=== PATIENT | female | born 1995 | race Caucasian/White ===

== ENCOUNTER 2021-07-30 19:34 | Emergency (ER) | payer OTHER, SELFPAY ==
[2021-07-30 19:36] VITALS: BP 146/85; PULSE 114; RESP 18; TEMP 37.9; O2SAT 96
--- NOTE | 2021-07-30 19:45 | W.ED.DIZZY ---
HPI - Dizziness General: Chief Complaint: Dizziness Stated Complaint: ever, headache Time Seen by Provider: 07/30/21 19:43 History of Present Illness: HPI Narrative: 25-year-old female comes in today with complaints of sore throat, cough, headache, nasal congestion. Patient appears mildly unwell but nontoxic. Patient denies any chronic medical problems. Patient does not feel that she is . Patient believes all of her immunizations are up-to-date. Patient has been using [id number] Tylenol for discomfort. Associated symptoms: Reports chills and nasal congestion; Denies chest pain, nausea or vomiting Review of Systems General: Reports: 10 or more systems reviewed and unremarkable except in HPI and below Const: Reports: fever(s), chills and body aches ENMT: Reports: throat pain and nasal congestion Card: Denies: chest pain Resp: Reports: non-productive cough GI: Denies: nausea, vomiting or diarrhea Musc: Denies: neck pain Skin/Breast: Denies: rash [facility], [facility] Female Reproductive History: Date of last menstrual period: 07/03/21 Physical Exam Const: COMMON NORMALS: alert HENMT: NOSE: Nasal discharge present MOUTH: Normal oral and palatal mucosa present THROAT: posterior oropharynx abnormal cobblestoning and erythema Neck/C-Spine: COMMON NORMALS: full ROM and no meningeal signs Resp: COMMON NORMALS: normal respiratory effort and clear to auscultation bilaterally AUSCULTATION: clear to auscultation bilaterally Cardio: COMMON NORMALS: regular rate RATE: regular rate GI: COMMON NORMALS: Soft to palpation PALPATION: Yes Soft to palpation Extremity: COMMON NORMALS: normal to inspection Neuro: SENSORIUM/ORIENTATION: Yes alert MENINGEAL SIGNS: Yes no meningeal signs Skin: COMMON NORMALS: no rashes or lesions noted GENERAL SKIN EXAM: no rashes or lesions noted Course Vital Signs: Vital signs: Vital Signs Temperature 100.2 F H 07/30/21 19:36 Pulse Rate 114 H 07/30/21 19:36 Respiratory Rate 18 07/30/21 19:36 Blood Pressure 146/85 07/30/21 19:36 Pulse Oximetry 96 07/30/21 19:36 MDM - Dizziness Medical Decision Making Patient comes in with fever, sinus pressure, and sore throat for 24 hours. On exam patient appears mildly unwell but not toxic. Skin is warm and dry. Abdomen soft nontender. Lungs clear to auscultation. Vital signs were normal except for some elevation of pulse and temperature. Differential diagnosis includes upper respiratory infection, influenza versus COVID, strep pharyngitis. Patient was given a liter of IV fluids, Toradol and diphenhydramine and dexamethasone for headache and symptoms. Patient had improvement in overall symptoms. Strep test was negative. CBC was unremarkable. CMP noted a sodium of 135. Outstanding was a viral PCR test. Recommended patient home and rest off work for 2 days and call back for results of PCR viral testing. Patient and mother both reported understanding. Lab Data : 07/30/21 20:05 07/30/21 20:05 Laboratory Results WBC 9.3 10^3/uL (4.0-10.0) 07/30/21 20:05 RBC 4.58 10^6/uL (4.1-5.3) 07/30/21 20:05 Hgb 13.0 g/dL (11.5-15.3) 07/30/21 20:05 Hct 37.8 % (37.0-47.0) 07/30/21 20:05 MCV 82.5 fl (81-99) 07/30/21 20:05 MCH 28.4 pg (28.0-34.0) 07/30/21 20:05 MCHC 34.4 g/dL (30.0-36.0) 07/30/21 20:05 RDW 12.6 % (12.1-15.1) 07/30/21 20:05 Plt Count 220 10^3/cmm (130-400) 07/30/21 20:05 MPV 10.7 fL (7.4-10.4) H 07/30/21 20:05 Neut % (Auto) 82.9 % 07/30/21 20:05 Lymph % (Auto) 8.7 % 07/30/21 20:05 [place] % (Auto) 7.5 % 07/30/21 20:05 Eos % (Auto) 0.1 % 07/30/21 20:05 Baso % (Auto) 0.5 % 07/30/21 20:05 Neut # (Auto) 7.72 10^3/uL (1.8-7.7) H 07/30/21 20:05 Lymph # (Auto) 0.8 10^3/uL (0.8-4.8) 07/30/21 20:05 [place] # (Auto) 0.7 10^3/uL (0.2-0.9) 07/30/21 20:05 Eos # (Auto) 0.0 10^3/uL (0.0-0.8) 07/30/21 20:05 Baso # (Auto) 0.1 10^3/uL (0.0-0.1) 07/30/21 20:05 Nucleated RBC % (auto) 0 % 07/30/21 20:05 Nucleated RBCs # 0.0 /100WBC 07/30/21 20:05 Sodium 135 mmol/L (136-145) L 07/30/21 20:05 Potassium 3.7 mmol/L (3.5-5.1) 07/30/21 20:05 Chloride 101 mmol/L (98-107) 07/30/21 20:05 Carbon Dioxide 21 mmol/L (22-29) L 07/30/21 20:05 Anion Gap 16.7 (5-19) 07/30/21 20:05 BUN 12 mg/dL (6-20) 07/30/21 20:05 Creatinine 0.9 mg/dL (0.5-0.9) 07/30/21 20:05 GFR Calculation 76.9 mL/min (90-130) L 07/30/21 20:05 Glucose 101 mg/dL (65-115) 07/30/21 20:05 Calculated Osmolality 280 mOsm/kg (285-295) L 07/30/21 20:05 Calcium 9.1 mg/dL (8.5-10.5) 07/30/21 20:05 Total Bilirubin 0.2 mg/dL (0.15-1.2) 07/30/21 20:05 AST 25 U/L (0-32) 07/30/21 20:05 ALT 21 U/L (0-33) 07/30/21 20:05 Alkaline Phosphatase 69 IU/L (35-105) 07/30/21 20:05 Total Protein 7.4 g/dL (6.6-8.7) 07/30/21 20:05 Albumin 4.3 g/dL (3.5-5.2) 07/30/21 20:05 Globulin 3.1 g/dL (1.3-4.6) 07/30/21 20:05 HCG, Qual Negative (Negative) 07/30/21 20:05 Urine Color Yellow (Yellow) 07/30/21 19:44 Urine Appearance Hazy (CLEAR) A 07/30/21 19:44 Urine pH 5 (5-7) 07/30/21 19:44 Ur Specific Webb 1.025 (1.005-1.030) 07/30/21 19:44 Urine Protein Trace (Negative) 07/30/21 19:44 Urine Glucose (UA) Norm (Normal) 07/30/21 19:44 Urine Ketones 1+ (Negative) H 07/30/21 19:44 Urine Blood 2+ (Negative) H 07/30/21 19:44 Urine Nitrate Negative (Negative) 07/30/21 19:44 Urine Bilirubin 1+ (Negative) H 07/30/21 19:44 Urine Urobilinogen 1 mg/dL (Negative) H 07/30/21 19:44 Ur Leukocyte Esterase Negative (Negative) 07/30/21 19:44 Urine RBC Rare /hpf (0-2) 07/30/21 19:44 Urine WBC 0-4 /hpf (0-5) H 07/30/21 19:44 Ur Squamous Epith Cells 0-4 /hpf (0-5) H 07/30/21 19:44 Amorphous Sediment Not Reportable 07/30/21 19:44 Urine Bacteria 1+ /hpf (NONE) H 07/30/21 19:44 Urine Mucus 1+ /hpf 07/30/21 19:44 RSV Nasal Swab Cancelled 07/30/21 20:05 RSV Nasal Swab Int Cntl Cancelled 07/30/21 20:05 Adenovirus (PCR) Cancelled 07/30/21 20:05 Human Metapneumovir PCR Cancelled 07/30/21 20:05 Influenza A (RT-PCR) Cancelled 07/30/21 20:05 Influenza A (H1) PCR Cancelled 07/30/21 20:05 Influenza A (H3) PCR Cancelled 07/30/21 20:05 Influenza B (RT-PCR) Cancelled 07/30/21 20:05 Parainfluenzae Type 1 Cancelled 07/30/21 20:05 Parainfluenzae Type 2 Cancelled 07/30/21 20:05 Parainfluenzae Type 3 Cancelled 07/30/21 20:05 RSV Ab Comment Cancelled 07/30/21 20:05 Rhinovirus (PCR) Cancelled 07/30/21 20:05 Group A Strep Rapid Negative (Negative) 07/30/21 20:05 Discharge Plan Discharge Patient Disposition: Home Clinical Impression: URI (upper respiratory infection) Qualifiers: URI type: unspecified viral URI Qualified Code(s): J06.9 - Acute upper respiratory infection, unspecified Condition: Stable Discharge Orders: Discharge ED (Routine); Ordered 07/30/21 Ordered By: Romeo Roberts Referrals: Mart Ferguson DO [Primary Care Provider] - Patient Instructions: Upper Respiratory Infection (ED), Opioid Safety Activity Restrictions/Additional Instructions: Home and rest. Drink plenty of fluids. Acetaminophen and ibuprofen for pain and discomfort. Follow-up with primary care as needed. Return to ER for new concerns. Most viral illnesses will run the course in 5 to 7 days. Most of the time the fever will break on days 4-5. If you have worsening symptoms or improvement of symptoms and then worsening symptoms again I recommend being reevaluated. Stand Alone Forms: Work/School Release Coding Level of Care Code ED Carrier Loader for [place] Fwd Exam Comprehensive
[2021-07-30 20:18] LABS: Basophils # 0.1 10^3/uL (0.0-0.1); Basophils % 0.5 %; Eosinophils % 0.1 %; Hematocrit 37.8 % (37.0-47.0); Lymphocytes # 0.8 10^3/uL (0.8-4.8); Lymphocytes % 8.7 %; Mean Corpuscular HGB Conc 34.4 g/dL (30.0-36.0); Mean Corpuscular Hemoglobin 28.4 pg (28.0-34.0); Mean Corpuscular Volume 82.5 fl (81-99); Mean Platelet Volume 10.7 fL (7.4-10.4); Monocytes # 0.7 10^3/uL (0.2-0.9); Monocytes % 7.5 %; Neutrophils # 7.72 10^3/uL (1.8-7.7); Neutrophils % 82.9 %; Nucleated Red Blood Cells % 0 %; Platelet Count 220 10^3/cmm (130-400); Red Blood Count 4.58 10^6/uL (4.1-5.3); Red Cell Distribution Width 12.6 % (12.1-15.1); White Blood Count 9.3 10^3/uL (4.0-10.0)
[2021-07-30 20:18] LABS: Urine Color Yellow (Yellow)
[2021-07-30 20:19] LABS: Add Urine Microscopic? YES; Bacteria Urine 1+ /hpf; Bilirubin Urine 1+ (Negative); Blood Urine 2+ (Negative); Glucose Urine UA Norm (Normal); Ketones Urine 1+ (Negative); Leukocyte Esterase Urine Negative (Negative); Mucus Urine 1+ /hpf; Nitrate Urine Negative (Negative); Protein Urine Trace (Negative); RBC Urine RARE /hpf (0-2); Specific Gravity, Urine 1.025 (1.005-1.030); Squamous Epithelial Cell Urine 0-4 /hpf (0-5); Urine Appearance Hazy (CLEAR); Urobilinogen Urine 1 mg/dL (Negative); WBC Urine 0-4 /hpf (0-5); pH Urine 5 (5-7)
[2021-07-30 20:31] LABS: HCG, Serum Qual Negative (Negative)
[2021-07-30 20:35] LABS: Alanine Aminotransferase 21 U/L (0-33); Albumin Level 4.3 g/dL (3.5-5.2); Alkaline Phosphatase 69 IU/L (35-105); Anion Gap 16.7 (5-19); Aspartate Amino Transferase 25 U/L (0-32); Blood Urea Nitrogen 12 mg/dL (6-20); Calcium 9.1 mg/dL (8.5-10.5); Carbon Dioxide 21 mmol/L (22-29); Chloride 101 mmol/L (98-107); Globulin 3.1 g/dL (1.3-4.6); Glomerular Filtration Rate 76.9 mL/min (90-130); Glucose 101 mg/dL (65-115); Osmolality Calculated 280 mOsm/kg (285-295); Potassium 3.7 mmol/L (3.5-5.1); Sodium 135 mmol/L (136-145); Total Bilirubin 0.2 mg/dL (0.15-1.2); Total Protein 7.4 g/dL (6.6-8.7)
[2021-07-30] MEDS: sodium chloride 0.9% 1,000 ML 999 ML IV (20:35)
[2021-07-30] MEDS: diphenhydrAMINE 50 mg/mL SDV 1mL 12.5 MG IVP (20:36)
[2021-07-30] MEDS: dexamethasone 10 mg/mL INJ IVP (20:37)
[2021-07-30] MEDS: ketorolac 30 mg/mL INJ 15 MG IVP (20:37)
[2021-07-30 21:43] LABS: Rapid Strep A Test Negative (Negative)
[2021-07-30 22:00] VITALS: BP 117/66; PULSE 84; RESP 20; O2SAT 94
[2021-07-30 22:19] LABS: Adenovirus Not Detected (NOT DETECT); Chlamydia Pneumoniae Not Detected (NOT DETECT); Coronavirus 229E,HKU1,NL63,OC4 Not Detected (NOT DETECT); Human Metapneumovirus Not Detected (NOT DETECT); Human Rhinovirus/Enterovirus Not Detected (NOT DETECT); Influenza A Not Detected (NOT DETECT); Influenza A H1 Not Detected (NOT DETECT); Influenza A H1-2009 Not Detected (NOT DETECT); Influenza A H3 Not Detected (NOT DETECT); Influenza B Not Detected (NOT DETECT); Mycoplasma Pneumoniae Not Detected (NOT DETECT); Parainfluenza Virus Type 1 Not Detected (NOT DETECT); Parainfluenza Virus Type 2 Not Detected (NOT DETECT); Parainfluenza Virus Type 3 Not Detected (NOT DETECT); Parainfluenza Virus Type 4 Not Detected (NOT DETECT); Respiratory Syncytial Virus A Not Detected (NOT DETECT); Respiratory Syncytial Virus B Not Detected (NOT DETECT); SARS-COV-2 Detected (NOT DETECT)
--- NOTE | 2021-07-31 09:02 | PC.NURSE ---
pt notified of postive coivd result
== END 2021-07-30 22:02 | disposition home or self-care (01) ==
PROVIDERS: Emergency Provider Nurse Practitioner Family; PCP Family Medicine
DX: J06.9 Acute upper respiratory infection, unspecified (principal)
CPT/HCPCS: 80053; 81001; 84703; 85025; 87081; 87486; 87581; 87633; 87880; 96361; 96374; 96375; 99284; J1100; J1200; J1885; J7030

== ENCOUNTER 2021-11-30 12:51 | Outpatient (CLI) | payer OTHER, SELFPAY ==
--- NOTE | 2021-11-30 13:13 | US_ITS ---
WS: [id number] ULTRASOUND RIGHT BREAST HISTORY: RT BREAST LUMP/MASS COMPARISON: None available. TECHNIQUE: 2-D and Doppler. Ultrasound directed to the RIGHT breast, 4 cm from the nipple at 1:00. This is the area of the palpab le abnormality. There is a small cluster of cysts with adjacent echogenic wall thickening. There is v nicolette slight distortion of the soft tissues and there is a small amount of debris and wall thickening o f some of these cysts. This cystic mass is just beneath the skin surface and measures 1.8 x 1.6 x 0.7 cm. US/US breast RT limited* [id number] IMPRESSION: BI-RADS: 3-Probably Benign FOLLOW-UP: 3 Month Follow-up 1. Recommend limited RIGHT breast ultrasound in 3 months to reevaluate the com plex cystic mass at 1:00. Favor this is probably benign. May be related to reso lving hematoma or even a focal area of fat necrosis. I suspect this will improv e and resolve slowly over time. 2. If this mass enlarges we can proceed with mammogram and biopsy if necessary . 3. Discussed these findings with the patient at the time of the ultrasound.
== END 2021-11-30 12:52 | disposition home or self-care (01) ==
PROVIDERS: PCP Family Medicine; Visit Provider Family Medicine
DX: N63.12 Unspecified lump in the right breast, upper inner quadrant (principal)
CPT/HCPCS: 76642

== ENCOUNTER 2022-07-10 06:35 | Outpatient (CLI) | payer BC, MEDICAID, SELFPAY ==
--- NOTE | 2022-07-10 | US_ITS ---
WS: [id number] EARLY OBSTETRICAL ULTRASOUND (<14 WEEKS). HISTORY: Dating. COMPARISON: None available. Single intrauterine gestational sac is identified. Cardiac activity at 120 BPM. [place]-rump length jasmyn sures 0.7 cm which corresponds to a gestation of 6w4d. Normal-appearing yolk sac and amnion demonstra tulio. Small subchorionic hemorrhage. Curvilinear subchorionic hemorrhage measures 1.7 x 0.2 x 0.9 cm. No free fluid. Corpus luteal cyst RIGHT ovary measures 1.4 x 1.5 x 1.2 cm. Normal vascularity RIGHT ovary. LEFT ovar y is not visualized. US/US OB <=14 wk fetus w transvag IMPRESSION: 1. Single intrauterine gestation of 6 weeks 4 days with an EDC of 03/01/2023. 2. Normal cardiac activity.
== END 2022-07-10 06:36 | disposition home or self-care (01) ==
PROVIDERS: PCP Family Medicine; Visit Provider Family Medicine
DX: Z34.01 Encounter for supervision of normal first pregnancy, first trimester (principal); Z3A.01 Less than 8 weeks gestation of pregnancy
CPT/HCPCS: 76801; 76817

== ENCOUNTER 2022-09-26 12:44 | Outpatient (CLI) | payer BC, MEDICAID, SELFPAY ==
--- NOTE | 2022-09-26 12:50 | US_ITS ---
WS: [id number] OBSTETRICAL ULTRASOUND COMPLETE HISTORY: ANATOMY CHECK COMPARISON: 07/10/2022 Overall quality of this examination is compromised by maternal body habitus and early gestational age . Single intrauterine gestation in Cephalic presentation. Cervix is Closed and normal length. Cervical length is 4.1 cm. Normal amount of amniotic fluid surrounds the fetus. Placenta: Lateral and fundal no previa or abruption. Placenta grade 1 Heart: 171 BPM. Not visualized. Also tracts are not visualized. Anatomy: Intracranial structures are unremarkable at this age. spine not well visualized due to position and early gestational age. kidneys, stomach and urinary bladder are unremarkable. Abd ominal wall, three-vessel cord and cord insertion site are normal. 4 extremities are present. profile: Not visualized. Gender: Not visualized. measurements: BPD = 4.1 cm = 18w3d; HC = 15.5 cm = 18w3d; AC = 12.9 cm = 18w3d; FL = 2.8 cm = 18w4d; EFW: 243 g. Biometry is internally concordant. AGA by ultrasound: 18w3d DUSTIN by ultrasound: 02/24/2023 US/US OB >= 14 weeks fetus [id number] IMPRESSION: 1. Single intrauterine gestation of 18w3d with an DUSTIN of 02/24/2023. Appropria te growth since the first trimester ultrasound. 2. Overall difficult evaluation of anatomy due to early gestational age and maternal body habitus. Recommend one-month follow-up to reevaluate he art including outflow tracts, spine, profile and gender.
== END 2022-09-26 12:45 | disposition home or self-care (01) ==
LOC: RAD 12:45
PROVIDERS: PCP Family Medicine; Visit Provider Family Medicine
DX: Z34.01 Encounter for supervision of normal first pregnancy, first trimester (principal)
CPT/HCPCS: 76805

== ENCOUNTER 2023-01-18 22:25 | Outpatient (CLI) | payer BC, MEDICAID, SELFPAY ==
[2023-01-18 22:25] VITALS: BMI 50.6
[2023-01-18 22:36] VITALS: BP 144/82; PULSE 98
[2023-01-18 22:52] VITALS: BP 134/78; PULSE 79
[2023-01-18 23:07] VITALS: BP 122/70; PULSE 80
[2023-01-18 23:11] LABS: Add Urine Culture? No; Add Urine Microscopic? YES; Bacteria Urine 3+ /hpf; Bilirubin Urine Neg (Negative); Blood Urine Neg (Negative); Glucose Urine UA Norm (Normal); Ketones Urine 1+ (Negative); Leukocyte Esterase Urine Negative (Negative); Mucus Urine 2+ /hpf; Nitrate Urine Negative (Negative); Protein Urine 1+ (Negative); Squamous Epithelial Cell Urine 25-40 /hpf (0-5); Urine Appearance Hazy (CLEAR); Urine Color Yellow (Yellow); Urobilinogen Urine 1 mg/dL (Negative); WBC Urine 0-4 /hpf (0-5); pH Urine 6.5 (5-7)
[2023-01-18 23:16] VITALS: BP 134/71; PULSE 86
--- NOTE | 2023-01-18 23:16 | PM.OBTRLD ---
OB L&D Triage Visit Information: Date of evaluation: 01/18/23 Comments/Additional reason(s) for visit: 27yo female at 35 wk IUP in LD with c/o possible LOF early today and discomfort with urination. Nitrazine negative and UA neg Nitrites. Encourage increase fluids. EFM- Cat 1. Evaluation: Baseline heart rate: 140 monitor accelerations: Present 15x15 monitor decelerations: None Laboratory results: Laboratory Tests 01/18/23 22:45 Urine Color Yellow Urine Appearance Hazy A Urine pH 6.5 Ur Specific Gravit y 1.020 Urine Protein 1+ H Urine Glucose (UA) Norm Urine Ketones 1+ H Urine Blood Neg Urine Nitrate Negative Urine Bilirubin Neg Urine Urobilinogen 1 H Ur Leukocyte Rika ase Negative Urine RBC 5-10 H Urine WBC 0-4 H Ur Squamous Epith Cells 25-40 H Amorphous Sediment Not Reportable Urine Bacteria 3+ H Urine Mucus 2+ Vital signs: Vital Signs - 24 hr 01/18/23 22:36 01/18/23 22:52 01/18/23 23:07 Pulse Rate 98 79 80 Blood Pressure 144/82 134/78 122/70 Final Diagnosis Final Diagnosis (1) 35 weeks gestation of : Plan: Encourage increase fluids Keep visit appointment. Status: Acute Code(s): Z3A.35 - 35 weeks gestation of Coding Level of Care Code Acute Code for Chg Fwd Diagnoses 35 weeks gestation of Z3A.35
[2023-01-18 23:25] VITALS: TEMP 36.7
[2023-01-18 23:29] VITALS: BP 134/71; PULSE 86; RESP 16; TEMP 36.7
== END 2023-01-18 23:31 | disposition home or self-care (01) ==
LOC: OPOB 22:26 → OBGYN 22:26
PROVIDERS: PCP Family Medicine; Visit Provider Obstetrics & Gynecology
DX: O26.899 Other specified pregnancy related conditions, unspecified trimester (principal); Z3A.00 Weeks of gestation of pregnancy not specified; N89.8 Other specified noninflammatory disorders of vagina
CPT/HCPCS: 59025; 81001; 83986; 99211